=== PATIENT | female | born 1965 | race Caucasian/White ===

== ENCOUNTER → 2018-06-29 | Outpatient (CLI) | payer BC | END | disposition home or self-care (01) | LOC: CFH 10:39 | PROVIDERS: ATTEND Nurse Practitioner Family | DX: K92.1 Melena (principal); R31.9 Hematuria, unspecified | CPT/HCPCS: 74018 ==

== ENCOUNTER → 2018-08-11 | Outpatient (CLI) | payer BC | END | disposition home or self-care (01) | LOC: CFH 13:42 | PROVIDERS: ATTEND Nurse Practitioner Family | DX: Z12.31 Encounter for screening mammogram for malignant neoplasm of breast (principal); J43.9 Emphysema, unspecified; R10.9 Unspecified abdominal pain; R31.9 Hematuria, unspecified | CPT/HCPCS: 71046; 74176; 77063; 77067 ==

== ENCOUNTER 2020-03-15 07:29 | Emergency (ER) | payer BC ==
[~2020-03-15] VITALS: Ht 157.5 cm; Wt 49.1 kg
[2020-03-15] MEDS ORDERED: ALBU18HF INH (08:19)
[2020-03-15] MEDS ORDERED: CHOL40002 PO (08:20)
[2020-03-15 08:59] VITALS: BP 160/90
--- NOTE | 2020-03-15 09:17 | NUR ---
Patient given discharge instructions and they have confirmed that they understand the instructions. Patient ambulatory with steady gait.
== END 2020-03-15 09:18 | disposition home or self-care (01) ==
LOC: ED 07:53
DX: R13.14 Dysphagia, pharyngoesophageal phase (principal); R83.0 Abnormal level of enzymes in cerebrospinal fluid; R63.4 Abnormal weight loss; J44.9 Chronic obstructive pulmonary disease, unspecified
CPT/HCPCS: 71046; 74220; 99284